=== PATIENT | male | born 1960 ===

== ENCOUNTER 2021-11-14 22:05 | Outpatient (REF) | payer OTHER, SELFPAY ==
[2021-11-14 23:35] LABS: Hemoglobin A1C 5.6 % (<5.7)
[2021-11-14 23:36] LABS: ALT 29 U/L (16-63); AST 16 U/L (15-37); Albumin 3.7 g/dL (3.4-5.0); Alkaline Phosphatase 44 U/L (46-116); Anion Gap 8.7 mmol/L (3-11); BUN 19 mg/dL (7-18); Bilirubin, Total 0.3 mg/dL (0.2-1.0); CO2 28.3 mmol/L (21.0-32.0); CREATININE 0.8 mg/dL (0.70-1.30); Calcium 8.6 mg/dL (8.5-10.1); Calculated LDL 117 mg/dL (<100); Chloride 104 mmol/L (98-107); Cholesterol 195 mg/dL (<200); Glucose 94 mg/dL (74-106); HDL Cholesterol 59 mg/dL (40-60); Sodium 141 mmol/L (136-145); Triglyceride 96 mg/dL (<150)
== END 2021-11-14 22:06 | disposition home or self-care (01) ==
LOC: NCHCN 22:05
PROVIDERS: Visit Provider Nurse Practitioner Family
DX: Z00.00 Encounter for general adult medical examination without abnormal findings (principal); Z13.220 Encounter for screening for lipoid disorders
CPT/HCPCS: 80053; 80061; 83036

== ENCOUNTER 2022-03-08 21:56 | Outpatient (REF) | payer OTHER, SELFPAY ==
[2022-03-11 09:54] LABS: PSA, Screening 1.1 ng/mL (<=4.5)
== END 2022-03-08 21:57 | disposition home or self-care (01) ==
LOC: NCHCN 21:56
PROVIDERS: Visit Provider Registered Nurse
DX: Z12.5 Encounter for screening for malignant neoplasm of prostate (principal); R39.9 Unspecified symptoms and signs involving the genitourinary system
CPT/HCPCS: 84153

== ENCOUNTER 2023-11-11 22:00 | Outpatient (REF) | payer OTHER, MEDICARE, SELFPAY ==
[2023-11-11 22:22] LABS: ALT 21 U/L (16-63); AST 22 U/L (15-37); Albumin 3.8 g/dL (3.4-5.0); Alkaline Phosphatase 53 U/L (46-116); Anion Gap 10.4 mmol/L (3-11); BUN 14 mg/dL (7-18); Bilirubin, Total 0.29 mg/dL (0.2-1.0); CO2 27.6 mmol/L (21.0-32.0); CREATININE 0.9 mg/dL (0.70-1.30); Calcium 9.2 mg/dL (8.5-10.1); Chloride 104 mmol/L (98-107); Estimated GFR 94.78 (mL/min/1.73m2); Glucose 95 mg/dL (74-106); Potassium 3.7 mmol/L (3.5-5.1); Sodium 142 mmol/L (136-145); Total Protein 6.7 g/dL (6.4-8.2)
== END 2023-11-11 22:01 | disposition home or self-care (01) ==
LOC: NCHCN 22:00
PROVIDERS: Visit Provider Nurse Practitioner Family
DX: B35.1 Tinea unguium (principal)
CPT/HCPCS: 80053